=== PATIENT | female | born 1955 | race Caucasian/White ===

== ENCOUNTER → 2017-03-12 | Outpatient (CLI) | payer OTHER ==
--- NOTE | 2017-03-12 15:23 | RAD ---
DATE: 03/12/2017 EXAM: DIGITAL SCREEN BILAT W/CAD HISTORY: Routine screening COMPARISON: 03/09/2016 This study was interpreted with the benefit of Computerized Aided Detection (CAD). The breast parenchyma shows scattered fibroglandular densities. Breast parenchyma level B. FINDINGS: No new or enlarging breast densities are seen. Benign type calcification is present. No suspicious microcalcifications have developed. IMPRESSION: Stable mammograms without evidence of malignancy. BI-RADS CATEGORY: 2 BENIGN FINDING(S) RECOMMENDED FOLLOW-UP: 12M 12 MONTH FOLLOW-UP PQRS compliance statement: Patient information was entered into a reminder system with a target due date for the next mammogram. Mammography is a sensitive method for finding small breast cancers, but it does not detect them all and is not a substitute for careful clinical examination. A negative mammogram does not negate a clinically suspicious finding and should not result in delay in biopsying a clinically suspicious abnormality. "Our facility is accredited by the [employer] Mammography [employer]."
== END | disposition home or self-care (01) ==
LOC: MAMMO 12:46
PROVIDERS: ATTEND Nurse Practitioner Acute Care
DX: Z12.31 Encounter for screening mammogram for malignant neoplasm of breast (principal)
CPT/HCPCS: G0202; 77067

== ENCOUNTER → 2020-06-22 | Outpatient (CLI) | payer OTHER ==
--- NOTE | 2020-06-22 16:01 | RAD ---
Gastric Emptying Study Indication: Abdominal pain x6-8 months. Procedure: Anterior and posterior projection static images are obtained over the stomach following or al administration of 2 mCi of 99 M technetium sulfur colloid in a solid meal. Time points include an immediate baseline, and 1, 2, 3, and 4 hours post ingestion. Findings: There is progressive emptying of the stomach on sequential images. Percentage retention at one hour is 70% (normal 34.8-91%). Two hours 38% (normal 2.7-60%). Three hours 15% (normal 0.5-28%). Four hours 1% (normal 0-10%). The calculated T1/2 of emptying is 101 minutes. Normal is considered 45-90 minutes. IMPRESSION: The percentage retention values of the 4 hour protocol are normal. The calculated T1/2 is mildly abno rmal. Electronically signed by: Nadeem Bruno MD (06/22/2020 3:58 PM) [id number]
== END ==
LOC: NM 08:58
PROVIDERS: ATTEND Internal Medicine Gastroenterology
DX: R10.84 Generalized abdominal pain (principal)
CPT/HCPCS: 78264; A9541

== ENCOUNTER → 2020-07-14 | Outpatient (CLI) | payer OTHER ==
--- NOTE | 2020-07-14 13:27 | RAD ---
EXAM: Orantes scale and color Doppler abdomen sonogram. HISTORY: Pain. Mesenteric ischemia. TECHNIQUE: Orantes scale and color Doppler sonographic imaging of the abdomen with spectral waveform rikki lysis was performed. COMPARISON: None. FINDINGS: The liver is normal in size. There is hepatic steatosis. No focal hepatic lesion is seen. T he gallbladder is surgically absent. The common bile duct is normal in caliber. The pancreas, spleen, kidneys, aorta and inferior vena cava are unremarkable. There are normal peak systolic velocities within the superior mesenteric artery and celiac axis. Ther e is a patent hepatic artery with normal directional flow. IMPRESSION: 1. Hepatic steatosis. 2. No Doppler evidence of hemodynamically significant stenosis involving the superior mesenteric jose ry or celiac axis. Electronically signed by: Cathy Valdez MD (07/14/2020 1:25 PM) [facility]
== END ==
LOC: US 09:11
PROVIDERS: ATTEND Internal Medicine Gastroenterology
DX: K76.0 Fatty (change of) liver, not elsewhere classified (principal); Z90.49 Acquired absence of other specified parts of digestive tract
CPT/HCPCS: 76700; 93975